=== PATIENT | male | born 1995 | race Caucasian/White ===

== ENCOUNTER 2017-04-18 15:57 | Emergency (ER) | payer BC ==
[2017-04-18] MEDS ORDERED: ACETAMINOPHEN 500 MG TAB PO ONE (16:26)
[2017-04-18] MEDS ORDERED: ONDANSETRON 4 MG/2 ML VIAL IVP ONE (16:26)
--- NOTE | 2017-04-18 16:26 | EDPHY ---
H & P Stated Complaint: URI for a few days Time Seen by Provider: 04/18/17 16:25 HPI/ROS: HPI: This is a 21-year-old male who presents with Chief Complaint: Upper respiratory symptoms Location:body Quality: fever Duration: 4 days Signs and Symptoms: no shortness of breath at rest, no shortness of breath on exertion, no cough, no chest pain, no palpitations, no lower extremity edema, no wheezing, no orthopnea, no paroxysmal nocturnal dyspnea, no fever, no injury/ trauma, no hemoptysis, no carpal pedal spasms Timing:sudden onset Severity: Moderate Context: Patient is generally healthy, local college student, reports sudden onset body aches, fever, nonproductive cough over the last 4 days. He reports the 1st day he had to stay in bed all day and eat or drink anything. This 2nd day he was able to drink fluids. The 3rd day he went to class. Today he had a smoothie and then a bowel movement approximately 2 hr later that was dark in color. Does not report history of constipation or straining with bowel movement. Patient reports that he has not taken any antipyretics including NSAID. He does not have excessive worry. He is complaining of burning epigastric pain that started today. Denies nausea/vomiting/diarrhea. Eating and drinking without difficulty. Denies food tolerance as early satiety. Nonsmoker. History of tonsillectomy. Denies sore throat/neck stiffness/ headache. Denies urinary symptoms. Modifying Factors: None Comment: ROS: see HPI Constitutional: No fever, no chills, no weight loss Eyes: No blurred vision Respiratory: No shortness of breath, no cough Cardiovascular: No chest pain, no palpitations, no lower extremity edema Gastrointestinal: No nausea, no vomiting, no diarrhea Genitourinary: No dysuria Extremities: No myalgias Neurologic: No weakness, no numbness Skin: No rashes Hematologic: No bruising, no bleeding MEDICAL/SURGICAL/SOCIAL HISTORY: Medical history: Attention deficit hyperactivity disorder. Surgical history: Tonsillectomy Social history: Student. CONSTITUTIONAL: extremely polite and cooperative young adult white male, mother at bedside, wake and alert, no obvious distress HEENT: Atraumatic and normocephalic, PERRL, EOMI. Tympanic membranes clear. Oropharynx clear, no exudate and moist pink mucosa. Airway patent. No lymphadenopathy. No meningismus. Cardiovascular: Normal S1/S2, mild tachycardia, regular rhythm, without murmur rub or gallop. PULMONARY/CHEST: Symmetrical and nontender. Clear to auscultation bilaterally. Good air movement. No accessory muscle usage. ABDOMEN: Soft, nondistended, nontender, no rebound, no guarding, no peritoneal signs, no masses or organomegaly. No CVAT. RECTAL: Good sphincter tone, light brown stool in vault, no external hemorrhoids , no fissures, no palpable masses, trace guaiac positive EXTREMITIES: 2/2 pulses, strength 5/5, no deformities, no clubbing, no cyanosis or edema. NEUROLOGICAL: no focal neuro deficits. GCS 15. SKIN: Warm and dry, no erythema. no rash. Good capillary refill. Source: Patient Exam Limitations: No limitations - Personal History Current Tetanus/Diphtheria Vaccine: Yes Current Tetanus Diphtheria and Acellular Pertussis (TDAP): Yes Tetanus Vaccine Date: < 10 years - Medical/Surgical History Hx Asthma: No Hx Chronic Respiratory Disease: No Hx Diabetes: No Hx Cardiac Disease: No Hx Renal Disease: No Hx Cirrhosis: No Hx Alcoholism: No Hx HIV/AIDS: No Hx Splenectomy or Spleen Trauma: No Other PMH: tonsilectomy - Social History Smoking Status: Never smoked Constitutional: Initial Vital Signs Temperature (C) 38.8 C H 04/18/17 16:12 Heart Rate 116 H 04/18/17 16:12 Respiratory Rate 20 04/18/17 16:12 Blood Pressure 121/83 H 04/18/17 16:12 O2 Sat (%) 96 04/18/17 16:12 O2 Delivery Mode Room Air Allergies/Adverse Reactions: No Known Allergies Allergy (Verified 04/18/17 16:11) Home Medications: Medication Instructions Recorded ADDERALL 15 MG TABLET 04/18/17 Pantoprazole Sodium [Protonix 40mg 40 mg PO DAILY #30 tab 04/18/17 (*)] Medical Decision Making - Diagnostics Imaging Results: Imaging Impressions Abdomen X-Ray 04/18/17 16:50 Impression: No localizing features within the abdomen or chest. ED Course/Re-evaluation: Influenza test, labs, guaiac stool, IV fluid, oral medication acute abdominal series ordered Vital signs reviewed and show 2 fever with tachycardia. Given 1 L normal saline, tylenol and GI cocktail Abdominal exam is benign. Doubt surgical abdomen. Trace Guaiac is positive. H&H stable. No hypoxia/shortness of breath/chest pain. Treat outpatient with GI follow-up for EGD start PPI Acute abdominal series shows nonobstructive bowel pattern, no free air or perforation. Discussed with mom/father obtaining CT abdomen and pelvis scan and she agrees that at this time patient has improved and there is no overt benefit that outweighs the risk of radiation. Repeat abdominal exam is greatly improved and soft and nontender. 1735: Reassessed patient. Epigastric pain resolved. Vital signs improved. Patient and parents do not 1 wait for influenza results which I deem is reasonable as they are not of Tamiflu candidate. Advised continue supportive care, gastroenterology follow-up, avoid NSAIDs This patient was seen under the supervision of my secondary supervising physician. I evaluated care for this patient independently. Discussed this patient with Dr. Kyle who did not see the patient. Differential Diagnosis: Abdominal pain including but not limited to appendicitis, cholecystitis, gastritis and urinary tract infection. Adult fever including but not limited to viral syndromes including influenza, urinary tract infection, pneumonia and sepsis. - Data Points Laboratory Results: Laboratory Results 04/18/17 16:20 04/18/17 16:20 04/18/17 04/18/17 04/18/17 16:45 16:20 16:20 WBC 8.95 10^3/uL 10^3/uL (3.80-9.50) RBC 5.27 10^6/uL 10^6/uL (4.40-6.38) Hgb 16.6 g/dL g/dL (13.7-17.5) Hct 47.0 % % (40.0-51.0) MCV 89.2 fL fL (81.5-99.8) MCH 31.5 pg pg (27.9-34.1) MCHC 35.3 g/dL g/dL (32.4-36.7) RDW 12.0 % % (11.5-15.2) Plt Count 176 10^3/uL 10^3/uL (150-400) MPV 9.5 fL fL (8.7-11.7) Neut % (Auto) 78.4 % H % (39.3-74.2) Lymph % (Auto) 10.6 % L % (15.0-45.0) Lares % (Auto) 10.1 % % (4.5-13.0) Eos % (Auto) 0.0 % L % (0.6-7.6) Baso % (Auto) 0.6 % % (0.3-1.7) Nucleat RBC Rel Count 0.0 % % (0.0-0.2) Absolute Neuts (auto) 7.02 10^3/uL H 10^3/uL (1.70-6.50) Absolute Lymphs (auto) 0.95 10^3/uL L 10^3/uL (1.00-3.00) Absolute Monos (auto) 0.90 10^3/uL H 10^3/uL (0.30-0.80) Absolute Eos (auto) 0.00 10^3/uL L 10^3/uL (0.03-0.40) Absolute Basos (auto) 0.05 10^3/uL 10^3/uL (0.02-0.10) Absolute Nucleated RBC 0.00 10^3/uL 10^3/uL (0-0.01) Immature Gran % 0.3 % % (0.0-1.1) Immature Gran # 0.03 10^3/uL 10^3/uL (0.00-0.10) Sodium 136 mEq/L mEq/L (135-145) Potassium 4.2 mEq/L mEq/L (3.5-5.2) Chloride 97 mEq/L mEq/L (97-110) Carbon Dioxide 23 mEq/l mEq/l (22-31) Anion Gap 16 mEq/L mEq/L (8-16) BUN 18 mg/dL mg/dL (7-23) Creatinine 1.0 mg/dL mg/dL (0.7-1.3) Estimated GFR > 60 Glucose 105 mg/dL H mg/dL (70-100) Calcium 9.1 mg/dL mg/dL (8.5-10.4) Total Bilirubin 0.6 mg/dL mg/dL (0.1-1.4) AST 20 IU/L IU/L (17-59) ALT 28 IU/L IU/L (21-72) Alkaline Phosphatase 83 IU/L IU/L (38-126) Total Protein 7.7 g/dL g/dL (6.3-8.2) Albumin 4.6 g/dL g/dL (3.5-5.0) Nasal Influenza A PCR Pending Nasal Influenza B PCR Pending Stool Occult Bld Scrn POSITIVE H (NEGATIVE) Medications Given: Discontinued Medications Acetaminophen (Tylenol) 1,000 mg PO EDNOW ONE Stop: 04/18/17 16:27 Last Admin: 04/18/17 16:30 Dose: 1,000 mg Al Hydroxide/Mg Hydroxide (Maalox Susp) 30 ml PO ONCE ONE Stop: 04/18/17 16:50 Last Admin: 04/18/17 17:18 Dose: 30 ml Hyoscyamine Sulfate (Levsin, Hyomax-Sl) 0.25 mg PO ONCE ONE Stop: 04/18/17 16:50 Last Admin: 04/18/17 17:18 Dose: 0.25 mg Sodium Chloride (Ns) 1,000 mls @ 0 mls/hr IV ONCE ONE PRN Reason: Wide Open Stop: 04/18/17 16:28 Last Admin: 04/18/17 16:30 Dose: 1,000 mls Lidocaine (Lidocaine 2% Viscous) 15 ml PO ONCE ONE Stop: 04/18/17 16:50 Last Admin: 04/18/17 17:18 Dose: 15 ml Ondansetron HCl (Zofran) 4 mg IVP EDNOW ONE Stop: 04/18/17 16:27 Last Admin: 04/18/17 16:30 Dose: 4 mg Departure - Departure Disposition: Home, Routine, Self-Care Clinical Impression: Viral syndrome, Guaiac + stool Condition: Good Instructions: Peptic Ulcer (ED), Gastritis (ED), Gastrointestinal Bleeding (ED) , Upper Endoscopy (DC), Diet for Stomach Ulcers and Gastritis (ED) Additional Instructions: Consume a minimum of 8-10 glasses of water or electrolyte fluid replacement drinks that include Gatorade, Powerade, Pedialyte. Eat a bland diet for the next 48 hours and then slowly advance as tolerated to a gastritis/ulcer diet. Take Nexium daily. Take Tylenol every 4 hr as needed for fever/pain. Avoid alcohol and NSAIDs including ibuprofen, Motrin, Advil, Aleve. Follow-up with Gastroenterology in the next 7-10 days for evaluation and determine candidacy for outpatient EGD. Return to the Emergency Room if symptoms do not resolve in the next 48-72 hours , you spike a fever > 102 F, or experience intractable abdominal pain/nausea/ vomiting. We will call you this evening with the results of your influenza test if it is positive. Referrals: Karsten Jerome MD [Primary Care Provider] - As per Instructions Serafin Navas MD [Medical Doctor] - As per Instructions Prescriptions: Pantoprazole Sodium [Protonix 40mg (*)] 40 mg PO DAILY #30 tab
[2017-04-18] MEDS ORDERED: ACETAMINOPHEN 500 MG TAB ONE (16:27)
[2017-04-18] MEDS ORDERED: NS 1,000 ML IV ONE (16:27)
[2017-04-18] MEDS ORDERED: LIDOCAINE 2% VISCOUS 15 ML UDCUP PO ONE (16:49)
[2017-04-18] MEDS ORDERED: MAG HYDROX/AL HYDROX/SIMETH 30 ML UDCUP PO ONE (16:49)
[2017-04-18] MEDS ORDERED: HYOSCYAMINE SULFATE 0.125 MG TAB PO ONE (16:49)
[2017-04-18 17:00] LABS: PLATELET COUNT 176 10^3/uL (150-400)
[2017-04-18 17:26] VITALS: BP 132/80; PULSE 94; RESP 16; TEMP 98.6; O2SAT 95
== END 2017-04-18 18:20 | disposition home or self-care (01) ==
DX: B34.9 Viral infection, unspecified (principal); R19.5 Other fecal abnormalities
CPT/HCPCS: 96374; J2405